=== PATIENT | female | born 1950 | race Caucasian/White ===

== ENCOUNTER 2020-02-03 08:03 | Outpatient (CLI) | payer MEDICARE ==
[~2020-02-03] VITALS: Ht 152.5 cm; Wt 95.9 kg
[2020-02-03] MEDS ORDERED: LIPITOR20 MG PO (08:28)
[2020-02-03] MEDS ORDERED: SYNTHROID 0.0.025 MG PO (08:28)
[2020-02-03] MEDS ORDERED: CYMBALTA 60MG60 MG PO (08:28)
[2020-02-03] MEDS ORDERED: COMBIGAN 0.2%-010 ML OU (08:29)
[2020-02-03] MEDS ORDERED: XALATAN EYE DROPS OD (08:30)
[2020-02-03] MEDS ORDERED: PRECOSE 25MG25 MG PO (08:31)
[2020-02-03 08:40] VITALS: BP 124/69; PULSE 77; TEMP 98.5
[2020-02-03 09:11] VITALS: BP 124/69; PULSE 77; TEMP 98.5
[2020-02-03] MEDS ORDERED: CEPHALEXIN500 M1 PO (09:35)
[2020-02-03 10:30] VITALS: BP 134/81; PULSE 74
--- NOTE | 2020-02-03 10:30 | NUR ---
Dressing remains clean, dry and intact. Pt ambulatory around room with steady gait. She is assisted to 's car by wheelchair with personal belongings and loop recorder supplies.
== END 2020-02-03 10:30 | disposition home or self-care (01) ==
LOC: COL.CAR 08:03
DX: I47.1 Supraventricular tachycardia (principal); R55 Syncope and collapse; F32.9 Major depressive disorder, single episode, unspecified; E78.00 Pure hypercholesterolemia, unspecified; G47.30 Sleep apnea, unspecified; Z88.8 Allergy status to other drugs, medicaments and biological substances; Z82.3 Family history of stroke

== ENCOUNTER 2020-05-18 10:14 | Day surgery (SDC) | payer MEDICARE ==
[2020-05-18] VITALS (10 sets, daily range): BP systolic 109–147; BP diastolic 56–79; PULSE 71–95; TEMP 97.4–98.4
[~2020-05-18] VITALS: Ht 152.5 cm; Wt 89.5 kg
[~2020-05-18 10:14] MED LIST: CEPHALEXIN500 M1 PO; COMBIGAN 0.2%-010 ML OU; CYMBALTA 60MG60 MG PO; LIPITOR20 MG PO; PRECOSE 25MG25 MG PO; SYNTHROID 0.0.025 MG PO; XALATAN EYE DROPS OD
[2020-05-18 11:29] LABS: HEMATOCRIT 37.6 % (37.0-47.0); HEMOGLOBIN 12.3 g/dl (12.5-16.0); MEAN CELL VOLUME 90 fl (80.0-100.0); MEAN CORPUSCULAR HEMOGLOBIN 29 pg (27.0-31.0); MEAN CORPUSCULAR HGB CONC 33 g/dl (33.0-37.0); MEAN PLATELET VOLUME 9.5 fl (7.4-10.4); PLATELET COUNT 240 K/mm3 (130-400); REDCELL DISTRIBUTION WIDTH-CV 13.3 % (11.5-14.5)
[2020-05-18 11:41] LABS: CALCIUM 9.1 mg/dL (8.4-10.2); CREATININE, serum 0.79 (0.52-1.25); POTASSIUM 4.7 mmol/L (3.4-5.0)
[2020-05-18 12:10] LABS: PROTHROMBIN TIME 10.8 SECONDS (9.7-12.8)
--- NOTE | 2020-05-18 13:54 | NUR ---
SEE MERGE FOR ALL MEDICATION ADMINISTRATION TIMES, INTRA AND POST SEDATION ASSESSMENTS
--- NOTE | 2020-05-18 17:25 | NUR ---
Pt arrived to floor at 1520. resting in bed with L sling on arm, not using arm, L chest pacemaker dressing remains CDI and loop recorder dressing is CDI. Pt tolerating ice to L chest well. Resting in bed, denies pain or other needs. Will give bedside shift report to nightshift nurse who will resume care.
--- NOTE | 2020-05-18 21:10 | NUR ---
Pt. sitting up in bed at this time. Pt. is A&OX3, assessment complete. INT to lt. ac patent. Pt. denies pain. Dressingsx2 to lt. chest CDI. Pt. denies further needs, call light within reach.
[2020-05-19 05:02] VITALS: BP 141/76; PULSE 91; TEMP 98.3
[2020-05-19 07:14] VITALS: BP 152/78; PULSE 89; TEMP 98.4
--- NOTE | 2020-05-19 07:30 | NUR ---
PATIENT IS A&O. VSS. DENIES PAIN. LEFT CHEST DRESSINGS ARE CD&I WITH GAUZE AND PAPER TAPE. HR IN THE 80'S, SR ON TELE. EKG OBTAINED THIS AM PER ORDERS. HEAD TO TOE ASSESSMENT WNL. PATIENT WILL LIKELY DISCHARGE LATER TODAY. AWAITING CARDIOLOGY TO ROUND.
[2020-05-19 07:48] LABS: BASO % 0.4 % (0.0-2.0); EOS # 0.4 (0.0-0.7); EOS % 6.4 % (0-4.0); GRAN # 4.2 (1.4-6.5); GRAN % 62.5 % (42.2-75.2); HEMATOCRIT 38.4 % (37.0-47.0); HEMOGLOBIN 12.6 g/dl (12.5-16.0); LYMPH # 1.6 (1.2-3.4); LYMPH % 23.3 % (20.0-51.0); MEAN CELL VOLUME 89 fl (80.0-100.0); MEAN CORPUSCULAR HEMOGLOBIN 29 pg (27.0-31.0); MEAN CORPUSCULAR HGB CONC 33 g/dl (33.0-37.0); MEAN PLATELET VOLUME 9.5 fl (7.4-10.4); MONO # 0.5 (0.1-0.6); MONO % 7.3 % (1.7-9.3); PLATELET COUNT 223 K/mm3 (130-400); REDCELL DISTRIBUTION WIDTH-CV 13.2 % (11.5-14.5)
[2020-05-19 07:56] LABS: ALBUMIN 3.7 gm/dL (3.5-5.0); BILIRUBIN,TOTAL 0.4 mg/dL (0.0-1.0); CALCIUM 8.7 mg/dL (8.4-10.2); CREATININE, serum 0.78 (0.52-1.25); POTASSIUM 4.2 mmol/L (3.4-5.0); TOTAL PROTEIN 6.5 gm/dL (6.4-8.2)
--- NOTE | 2020-05-19 08:48 | NUR ---
Initial visit; Patient thanked [employer] for offering spiritual care and God's blessings.
[2020-05-19] MEDS ORDERED: CEPHALEXIN500 M1 PO (10:29)
[2020-05-19 11:37] VITALS: BP 163/81; PULSE 92; TEMP 98
--- NOTE | 2020-05-19 13:00 | NUR ---
PATIENT IS DISCHARGING HOME VIA WC TO [facility] WHERE IS WAITING. GAVE DISCHARGE INSTRUCTIONS, E-SCRIPT SENT, AND F/U APT DISCUSSED. DC'D LEFT AC IV, COVERED SITE WITH GAUZE & TAPE. TELE OFF. PATIENT ESCORTED OUT.
== END 2020-05-19 13:00 | disposition home or self-care (01) ==
LOC: COL.CAR 10:14 → SURG 15:00 → COL.CAR 05-19 13:00 → SURG 05-19 13:34
PROVIDERS: Internal Medicine Cardiovascular Disease
DX: I49.5 Sick sinus syndrome (principal); Z95.0 Presence of cardiac pacemaker; R55 Syncope and collapse; E78.00 Pure hypercholesterolemia, unspecified; G47.33 Obstructive sleep apnea (adult) (pediatric); Z88.8 Allergy status to other drugs, medicaments and biological substances
CPT/HCPCS: OP; C1769; C1785; C1894; C1898; J0690; J2250; J3010; J7030

== ENCOUNTER → 2021-12-24 | Outpatient (CLI) | payer MEDICARE, OTHER | LOC: MC.RAD 10:08 | DX: Z12.31 Encounter for screening mammogram for malignant neoplasm of breast (principal) ==

== ENCOUNTER → 2023-02-15 | Outpatient (CLI) | payer MEDICARE, OTHER | LOC: CANSCHCLI → MC.RAD 12:55 | DX: Z12.31 Encounter for screening mammogram for malignant neoplasm of breast (principal) ==